=== PATIENT | female | born 1960 | race Caucasian/White ===

== ENCOUNTER → 2016-07-18 | Outpatient (CLI) | payer BC ==
--- NOTE | 2016-07-18 17:57 | MR ---
EXAMINATION TYPE: MR knee RT wo con DATE OF EXAM: 07/18/2016 5:21 PM COMPARISON: Plain film 04 July 2016 HISTORY: knee pain x3 months TECHNIQUE: Multiplanar, multisequence imaging of the knee is performed without IV contrast. FINDINGS: MEDIAL MENISCUS: Posterior horn of the medial meniscus shows irregular stellate signal compatible wit h complex tear, anterior horn is intact LATERAL MENISCUS: Anterior and posterior horns are intact without tear. CRUCIATE LIGAMENTS: The anterior and posterior cruciate ligaments are intact and unremarkable. COLLATERAL LIGAMENTS: The medial collateral ligament and lateral collateral ligament complex are inta ct and unremarkable. EXTENSOR MECHANISM: Visualized quadriceps and patellar tendons are intact. EFFUSION: There is a sizable joint effusion in suprapatellar region and extending laterally POPLITEAL CYST: Semimembranosus gastrocnemius cyst measuring approximately 3.7 cm x 1.5 x 1.2 cm is noted. TRICOMPARTMENT SPACES: Joint space loss is present especially at the patellofemoral joint, there is t ricompartmental marginal spurring. CARTILAGE: Grade IV chondromalacia present at the posterior patella. There is also grade IV chondroma lacia at the lateral condyle of the right femur anteriorly, grade 2 to III chondromalacia in the medi al femoral condyle BONE MARROW SIGNAL: Subchondral geode formation present at the posterior patella, lateral femoral con dyle. OTHER: No additional significant abnormality is appreciated. IMPRESSION: Osteoarthritis, complex tear of the posterior horn of the medial meniscus.
== END | disposition home or self-care (01) ==
LOC: RADMRIMAIN 16:39
PROVIDERS: ATTEND Orthopaedic Surgery
DX: S83.231A Complex tear of medial meniscus, current injury, right knee, initial encounter (principal); M17.11 Unilateral primary osteoarthritis, right knee

== ENCOUNTER → 2016-08-18 | Outpatient (CLI) | payer BC ==
[2016-08-18 14:12] LABS: EKG EKG PERFORMED
[2016-08-18 14:37] LABS: Basophils # (A) 0.1 k/uL (0-0.2); Basophils % (A) 1 %; CH 32.1; Eosinophils # (A) 0.1 k/uL (0-0.7); Eosinophils % (A) 2 %; HCT 39.1 % (34.0-46.0); HDW 2.15; Luc # (Auto) 0.14; Luc % (Auto) 2; Lymphocytes # (A) 1.7 k/uL (1.0-4.8); Lymphocytes % (A) 21 %; MCH 32.4 pg (25.0-35.0); MCHC 33.2 g/dL (31.0-37.0); MCV 97.7 fL (80.0-100.0); Mean Platelet Volume 7.1; Monocytes # (A) 0.4 k/uL (0-1.0); Monocytes % (A) 5 %; Neutrophils # (A) 5.4 k/uL (1.3-7.7); Neutrophils % (A) 70 %; RBC 4.01 m/uL (3.80-5.40); RDW 12.8 % (11.5-15.5); WBC 7.8 k/uL (3.8-10.6); WBC (Perox) 8.11
[2016-08-18 14:45] LABS: Anion Gap 8 mmol/L; Carbon Dioxide 26 mmol/L (22-30); Chloride 108 mmol/L (98-107); Potassium 4.3 mmol/L (3.5-5.1); Sodium 142 mmol/L (137-145)
== END | disposition home or self-care (01) ==
LOC: LABPAT 14:04
PROVIDERS: ATTEND Orthopaedic Surgery
DX: Z01.810 Encounter for preprocedural cardiovascular examination (principal); Z01.818 Encounter for other preprocedural examination; I10 Essential (primary) hypertension; M23.91 Unspecified internal derangement of right knee
CPT/HCPCS: 80051; 85025; 93005

== ENCOUNTER 2016-08-24 07:56 | Day surgery (SDC) | payer BC ==
[2016-08-21 16:04] VITALS: BMI 29.0
--- NOTE | 2016-08-23 17:51 | HP ---
DATE OF ADMISSION: 08/24/2016 Subha Her is a 56-year-old patient seen with progressive right knee pain. After treatment options were discussed, patient to proceed with right knee arthroscopy. Consent was obtained. Past medical history is hypertension, gastroesophageal reflux disease. Past surgical history is tubal ligation, section. DAILY MEDICATIONS: Buspirone, ibuprofen, lisinopril, omeprazole, Xanax. ALLERGIES: DEMEROL, MORPHINE. SOCIAL HISTORY: Patient denies tobacco use. PHYSICAL EVALUATION OF RIGHT KNEE: Range of motion is 0 to 120 degrees. There is mild to moderate effusion. Tenderness along the medial and lateral joint lines. Positive medial Anedr's. Positive lateral Ander's. Ligaments are stable. Hip rotation is without pain. Distal neurovascular exam is intact. Right knee radiographs revealed mild to moderate osteoarthritis. An MRI of the right knee revealed medial meniscal tear, joint effusion and osteoarthritis. IMPRESSION: Internal derangement of right knee with medial meniscal tear. PLAN: Right knee arthroscopy with partial meniscectomy and debridement.
[~2016-08-24 07:56] MED LIST: DEXAMETHASONE SOD PHOSPHATE 10 MG/ML 1 ML VIAL IV ONE; LACTATED RINGERS 1,000 ML IV SCH; MIDAZOLAM 2 MG/2 ML VIAL IV PRN; ONDANSETRON 4 MG/2 ML VIAL IVP ONE; ceFAZolin 2 GM in SODIUM CHLORIDE 0.9% 100 ML IVPB ONE
[2016-08-24 08:10] VITALS: RESP 16; TEMP 98.2
[2016-08-24] MEDS ORDERED: LIDOCAINE 1% 20 ML VIAL (10MG/ML) FOR IV START INTRADERMA ONE (08:43)
[2016-08-24] MEDS ORDERED: fentaNYL (PF) 50 MCG/ML 2 ML AMP ONE (10:02)
[2016-08-24] MEDS ORDERED: PROPOFOL 10 MG/ML 20 ML VIAL IV ONE (10:02)
[2016-08-24] MEDS ORDERED: PHENYLEPHRINE-0.9% NACL SYG 1 MG/10 ML SYRINGE ONE (10:02)
[2016-08-24] MEDS ORDERED: SUCCINYLCHOLINE CHLORIDE 100 MG/5 ML SYR IV ONE (10:02)
[2016-08-24] MEDS ORDERED: LIDOCAINE 1% INJ 10MG/ML (20 ML MDV) ONE (10:02)
[2016-08-24] MEDS ORDERED: MIDAZOLAM 2 MG/2 ML VIAL ONE (10:02)
[2016-08-24] MEDS ORDERED: BUPIVACAIN-EPI 0.25%-1:200,000 30 ML VIAL INTRAARTIC ONE (10:24)
--- NOTE | 2016-08-24 11:04 | P.OP ---
Date of Procedure: 08/24/16 Preoperative Diagnosis: Internal derangement right knee Postoperative Diagnosis: 1. Tear medial and lateral meniscus right knee 2. Grade 2 chondromalacia medial femoral condyle right knee 3. Grade 3/4 chondromalacia patellofemoral joint right knee 4. Reactive synovitis medial and suprapatellar compartments right knee Procedure(s) Performed: 1. Arthroscopic partial medial and lateral meniscectomy right knee 2. Arthroscopic chondroplasty medial femoral condyle right knee 3. Arthroscopic chondroplasty patellofemoral joint right knee 4. Arthroscopic partial synovectomy medial and suprapatellar compartments right knee Implants: Anesthesia: FRANCAA, local Surgeon: Yoni Haynes Estimated Blood Loss (ml): 15 Pathology: none sent Disposition: PACU Indications for Procedure: 56-year-old patient seen with progressive right knee pain. After having treatment options discussed, she elected to proceed with right knee arthroscopy. Operative Findings: See description of procedure Description of Procedure: Patient was taken to the operative suite. Patient underwent a general anesthetic by the department of anesthesia. Patient was given preoperative antibiotics. The right lower extremity was placed in a well-padded arthroscopic leg crowley. The right leg was prepped and draped in the normal sterile orthopedic fashion. A lateral parapatellar and suprapatellar incision was made. Trochars were inserted. Arthroscopy was initiated. Suprapatellar pouch revealed thick reactive synovitis. The patellofemoral joint appeared to articulate congruently. There was grade 3/4 chondromalacia of the patella and femoral sulcus with osteochondral tears present. The scope was guided into the medial gutter. No loose bodies or plica were identified. The scope was then guided into the medial compartment. A medial parapatellar incision was made. Trocar inserted followed by probe. There was a complex tear posterior horn medial meniscus extending just into the midbody area. There was an area of grade 2 chondromalacia medial femoral condyle with some osteochondral tears present. Thick reactive synovitis anteriorly. No loose bodies. A partial medial meniscectomy was performed on a stable tissue. I performed a chondroplasty of the medial femoral condyle and partial synovectomy. The residual meniscus was probed and found to be stable as was the residual osteochondral surface medial femoral condyle. Scope and probe were then guided into the intercondylar notch. Cruciates were identified, probed and found to be stable. The scope and probe were then guided into lateral compartment. There was some superficial tearing of the lateral meniscus in the midbody and posterior horn areas. Mild grade 1 chondromalacia changes with no osteochondral tears. No loose bodies, no reactive synovitis. A partial lateral meniscectomy was performed down to stable tissue. The residual meniscus was probed and found to be stable. The scope was in guided back into the suprapatellar compartment. I introduced a motorized shaver into the super patellar compartment. I performed a chondroplasty of the patella and femoral sulcus getting down to stable osteochondral tissue. I performed a partial synovectomy. The residual osteochondral surfaces were probed and found to be stable. I took one more look around the entire knee, no residual debris. Instruments were now removed from the joint. The joint was infiltrated with .25 % Marcaine. Steri-Strips were applied to the portal sites. Sterile dressings were applied. The patient was placed into a IRAJ hose. No tourniquet was utilized. The patient was awakened, transferred to a bed and taken to recovery stable satisfactory condition.
[2016-08-24] MEDS: HYDROmorphone 1 MG/ML 1 ML SYRINGE IVP PRN ×2 (11:21→11:36)
[2016-08-24] MEDS ORDERED: LACTATED RINGERS 1,000 ML IV ONE (11:37)
[2016-08-24] MEDS ORDERED: HYDROcodone/APAP 5-325MG 1 EACH TAB PO ONE (12:45)
[2016-08-24 13:00] VITALS: BP 131/71; PULSE 62
== END 2016-08-24 13:43 | disposition home or self-care (01) ==
LOC: OR 07:56
PROVIDERS: ATTEND Orthopaedic Surgery
DX: S83.231A Complex tear of medial meniscus, current injury, right knee, initial encounter (principal); S83.281A Other tear of lateral meniscus, current injury, right knee, initial encounter; X58.XXXA Exposure to other specified factors, initial encounter; M23.91 Unspecified internal derangement of right knee; M94.261 Chondromalacia, right knee; M22.41 Chondromalacia patellae, right knee; M65.861 Other synovitis and tenosynovitis, right lower leg; M17.11 Unilateral primary osteoarthritis, right knee; M25.461 Effusion, right knee; I10 Essential (primary) hypertension; K21.9 Gastro-esophageal reflux disease without esophagitis; E78.5 Hyperlipidemia, unspecified; Z79.1 Long term (current) use of non-steroidal anti-inflammatories (NSAID); Z79.899 Other long term (current) drug therapy; Z88.5 Allergy status to narcotic agent; Z88.8 Allergy status to other drugs, medicaments and biological substances; Z72.0 Tobacco use
CPT/HCPCS: 29880; J2250; J1100; J0690; J2405; J2001; J3010; J1170; J2370; J0330; J2704

== ENCOUNTER → 2018-11-01 | Outpatient (CLI) | payer BC ==
--- NOTE | 2018-11-06 11:50 | MM ---
Reason for exam: history of breast cancer, conservation therapy. Last mammogram was performed 3 years and 10 months ago. History: Patient is postmenopausal and has history of breast cancer at age 54. Malignant MG pre op needle loc RT of the right breast, March 26, 2015. Malignant MG stereo VAD BX RT of the right breast, February 12, 2015. Taking antineoplastic for 4 years. Physical Findings: Nurse did not find any significant physical abnormalities on exam. (nurse ts). MG 3D Diag Mammo W/Cad MIROSLAVA Bilateral CC and MLO view(s) were taken. Prior study comparison: January 13, 2015, right breast MG work up mamm w CAD RT. December 31, 2014, bilateral MG screening mammo w CAD. The breast tissue is heterogeneously dense. This may lower the sensitivity of mammography. No suspicious abnormality. Post therapy changes on the right breast. ASSESSMENT: Benign, BI-RAD 2 RECOMMENDATION: Follow-up diagnostic mammogram of both breasts in 1 year. Patient was given the results on 11/05/18.
== END | disposition home or self-care (01) ==
LOC: RADMAMWWP 15:30
PROVIDERS: ATTEND Family Medicine
DX: Z08 Encounter for follow-up examination after completed treatment for malignant neoplasm (principal); Z85.3 Personal history of malignant neoplasm of breast
CPT/HCPCS: 77062; 77066

== ENCOUNTER 2019-12-21 11:07 | Emergency (ER) | payer BC ==
[2019-12-21 11:21] VITALS: BP 150/89; PULSE 75; RESP 18; TEMP 98.1
--- NOTE | 2019-12-21 11:27 | ED ---
General Adult HPI - General Chief complaint: Extremity Injury, Lower Stated complaint: fall, rt foot injury Time Seen by Provider: 12/21/19 11:15 Source: patient, RN notes reviewed, old records reviewed Mode of arrival: ambulatory Limitations: no limitations - History of Present Illness Initial comments: This is a 59-year-old female who presents to the emergency department stating that 4 days ago she was the last DOCTOR first toe on her right foot. Patient states since then it's become swollen and very tender difficult to walk. Patient states she's been away from home so she didn't come to the emergency department. Patient denies falling and hitting her head or neck. Patient denies any other injury at this time. - Related Data Home Medications Medication Instructions Recorded Confirmed Omeprazole [PriLOSEC] 20 mg PO DAILY PRN 12/30/14 08/21/16 buPROPion HCL [Wellbutrin XL] 150 mg PO BID 12/30/14 08/21/16 lisinopriL 40 mg PO HS 12/30/14 08/21/16 Acetaminophen Tab [Tylenol Tab] 500 mg PO Q6H PRN 03/26/15 08/21/16 Anastrozole [Arimidex] 1 mg PO DAILY 08/21/16 08/21/16 Ibuprofen [Motrin] 800 mg PO BID 08/21/16 08/21/16 Previous Rx's Medication Instructions Recorded Hydrocodone/Acetaminophen [[place] 1 - 2 each PO Q6HR PRN #30 tab 08/24/16 5-325] Allergies Allergy/AdvReac Type Severity Reaction Status Date / Time celecoxib [From Celebrex] Allergy "IT MADE Verified 12/21/19 11:17 MY ARTHRITIS WORSE" morphine Allergy "I didn't Verified 12/21/19 11:17 like how it made me feel" meperidine HCl [From Demerol] AdvReac "I didn't Verified 12/21/19 11:17 like how it made me feel" Review of Systems ROS Statement: Those systems with pertinent positive or pertinent negative responses have been documented in the HPI. ROS Other: All systems not noted in ROS Statement are negative. Past Medical History Past Medical History: GERD/Reflux, Hypertension History of Any Multi-Drug Resistant Organisms: None Reported Past Surgical History: Section, Orthopedic Surgery, Tubal Ligation Additional Past Surgical History / Comment(s): X2, PILINOIDAL CYST REMOVED, RT HAMMER TOE REPAIR, LEFT INDEX FINGER TIP AMPUTATED R/T DOG BITE Past Anesthesia/Blood Transfusion Reactions: No Reported Reaction Past Psychological History: Anxiety, Depression Smoking Status: Current every day smoker Past Alcohol Use History: None Reported Past Drug Use History: None Reported - Past Family History Mother Family Medical History: Congestive Heart Failure (CHF), Myocardial Infarction (CA) Father Additional Family Medical History / Comment(s): SUICIDE General Exam - General Exam Comments Initial Comments: GENERAL Patient is well-developed and well-nourished. Patient is in mild distress. EYES Patient's pupils are equal and round. Extraocular motion is intact SKIN Unremarkable NEURO The patient is alert and oriented 3 PYSCH Patient has normal interpersonal interactions. MUSCULOSKELETAL Patient's right first toe is swollen and very tender to first metatarsal is also slightly tender at the distal aspect. Limitations: no limitations Course Vital Signs 12/21/19 11:18 Temperature 98.1 F Pulse Rate 75 Respiratory 18 Rate Blood Pressure 150/89 O2 Sat by Pulse 99 Oximetry Medical Decision Making - Medical Decision Making X-ray of the foot shows no acute abnormality. I explained to the patient she could've ligamentous damage and needed to follow up with orthopedics and she agreed. Disposition Clinical Impression: Right foot strain Disposition: HOME SELF-CARE Condition: Good Instructions (If sedation given, give patient instructions): Foot Sprain (ED) Is patient prescribed a controlled substance at d/c from ED?: No Referrals: Tyrell Cartwright DO [Medical Doctor] - 1-2 days Time of Disposition: 12:13
--- NOTE | 2019-12-21 11:49 | XR ---
EXAMINATION TYPE: XR foot complete RT DATE OF EXAM: 12/21/2019 COMPARISON: NONE HISTORY: Pain TECHNIQUE: Three views are submitted. FINDINGS: The osseous structures are intact. There is no acute fracture or dislocation. Arthropathy of the f irst MTP. Arthropathy of the PIP joint second digit. Chronic deformity along the distal margin of the proximal phalanx second digit. Large calcaneal spurs are noted.. IMPRESSION: 1. No acute fracture or dislocation. If symptoms persist, follow-up exam in 7 to 10 days could be ob tained. Deformity involving the proximal phalanx second digit appears chronic. 2. Arthropathy with large calcaneal spurs.
== END 2019-12-21 12:25 | disposition home or self-care (01) ==
LOC: EC 11:07
DX: S96.911A Strain of unspecified muscle and tendon at ankle and foot level, right foot, initial encounter (principal); I10 Essential (primary) hypertension; F32.9 Major depressive disorder, single episode, unspecified; K21.9 Gastro-esophageal reflux disease without esophagitis; F41.9 Anxiety disorder, unspecified; F17.200 Nicotine dependence, unspecified, uncomplicated; Z79.899 Other long term (current) drug therapy; Z79.1 Long term (current) use of non-steroidal anti-inflammatories (NSAID); Z88.6 Allergy status to analgesic agent; Z88.5 Allergy status to narcotic agent; X58.XXXA Exposure to other specified factors, initial encounter
CPT/HCPCS: 99284

== ENCOUNTER → 2020-06-30 | Outpatient (CLI) | payer BC | END | disposition home or self-care (01) | LOC: LABWHC1 16:07 | PROVIDERS: ATTEND Nurse Practitioner Family | DX: Z20.822 Contact with and (suspected) exposure to COVID-19 (principal) | CPT/HCPCS: U0003; C9803; U0005 ==

== ENCOUNTER → 2020-08-11 | Outpatient (CLI) | payer BC ==
--- NOTE | 2020-08-12 13:06 | MM ---
Reason for exam: screening (asymptomatic). Last mammogram was performed 1 year and 9 months ago. History: Patient is postmenopausal and has history of breast cancer at age 54. Malignant MG pre op needle loc RT of the right breast, March 26, 2015. Malignant MG stereo VAD BX RT of the right breast, February 12, 2015. Taking antineoplastic for 4 years. Physical Findings: A clinical breast exam by your physician is recommended on an annual basis and results should be correlated with mammographic findings. MG 3D Screening Mammo W/Cad Bilateral CC and MLO view(s) were taken. Prior study comparison: November 01, 2018, bilateral MG 3d diag mammo w/cad MIROSLAVA. January 13, 2015, right breast MG work up mamm w CAD RT. The breast tissue is heterogeneously dense. This may lower the sensitivity of mammography. Finding: Architectural distortion in the lower inner quadrant, middle position of the right breast. There is no discrete abnormality. ASSESSMENT: Benign, BI-RAD 2 RECOMMENDATION: Routine screening mammogram of both breasts in 1 year.
== END | disposition home or self-care (01) ==
LOC: RADMAMWWP 16:00
PROVIDERS: ATTEND Family Medicine
DX: Z12.31 Encounter for screening mammogram for malignant neoplasm of breast (principal); Z78.0 Asymptomatic menopausal state; Z85.3 Personal history of malignant neoplasm of breast
CPT/HCPCS: 77063; 77067

== ENCOUNTER → 2022-04-03 | Outpatient (CLI) | payer BC ==
--- NOTE | 2022-04-03 14:16 | US ---
EXAMINATION TYPE: US carotid duplex BILAT DATE OF EXAM: 04/03/2022 COMPARISON: NONE CLINICAL HISTORY: Z13.6 screening. TECHNIQUE: Carotid duplex ultrasound examination. Indirect Doppler criteria was utilized. FINDINGS: EXAM MEASUREMENTS: RIGHT: Peak Systolic Velocity (PSV) cm/sec ----- Right CCA: 122.0 ----- Right ICA: 151.0 ----- Right ECA: 128.0 ICA/CCA ratio: 1.23 RIGHT: End Diastole cm/sec ----- Right CCA: 29.9 ----- Right ICA: 40.2 ----- Right ECA: 17.2 LEFT: Peak Systolic Velocity (PSV) cm/sec ----- Left CCA: 85.1 ----- Left ICA: 141.0 ----- Left ECA: 103.0 ICA/CCA ratio: 1.65 LEFT: End Diastole cm/sec ----- Left CCA: 22.1 ----- Left ICA: 34.4 ----- Left ECA: 13.9 VERTEBRALS (direction of flow): Right Vertebral: Antegrade Left Vertebral: Antegrade Rhythm: Normal PARATRANSIT DRIVER NOTES: No significant stenosis seen. Mildly elevated velocities noted bilateral ICA's. Mi ld bilateral plaque noted. IMPRESSION: 50-69% stenosis of the bilateral carotid bifurcations by peak systolic velocity. Criteria for Assigning % of Stenosis / Diameter reduction (Estimation based on the indirect measurements of the internal carotid artery velocities (ICA PSV). 1. Normal (no stenosis)=ICA PSV < 125 cm/s: ratio < 2.0: ICA EDV<40 cm/s. 2. Less than 50% stenosis=ICA PSV < 125 cm/s: ratio < 2.0: ICA EDV<40 cm/s. 3. 50 to 69% stenosis=ICA PSV of 125 to 230 cm/s: ration 2.0 ? 4.0: ICA EDV 40-100 cm/s. 4. Greater than 70% stenosis to near occlusion= ICA PSV > 230 cm/s: ratio > 4.0: ICA EDV > 100 cm/s. 5. Near occlusion= ICA PSV velocities may be low or undetectable: variable ratio and ICA EDV. 6. Total occlusion=unable to detect flow.
== END | disposition home or self-care (01) ==
LOC: RADUSWWP 13:26
PROVIDERS: ATTEND Family Medicine
DX: Z13.6 Encounter for screening for cardiovascular disorders (principal); I65.23 Occlusion and stenosis of bilateral carotid arteries
CPT/HCPCS: 93880

== ENCOUNTER → 2022-07-11 | Outpatient (CLI) | payer BC ==
--- NOTE | 2022-07-11 19:32 | BD ---
EXAMINATION TYPE: Axial Bone Density DATE OF EXAM: 07/11/2022 CLINICAL HISTORY: 62 years old Female. ICD-10 CODE: Z78.0 asymp,Z13.820 Encounter for screening for osteoporosis Height: 64.5in Weight: 171lb FRAX RISK QUESTIONS: Secondary Osteoporosis: RISK FACTORS HISTORY OF: Family History of Osteoporosis: unknown Active: yes Postmenopausal woman: yes Lost more than 2 inches in height since high school: yes MEDICATIONS: Additional Medications: bp med Additional History: breast cancer 2015 with radiation EXAM MEASUREMENTS: Bone mineral densitometry was performed using the Audience System. Bone mineral density as measured about the Lumbar spine is: ----- L1-L4(G/cm2): 1.506 T Score Values are as follows: ----- L1: 4.2 ----- L2: 2.6 ----- L3: 1.6 ----- L4: 2.7 ----- L1-L4: 2.7 Z Score Values are as follows: ----- L1: 5.0 ----- L2: 3.5 ----- L3: 2.5 ----- L4: 3.6 ----- L1-L4: 3.6 First dexa at [facility] Bone mineral density about the R hip (g/cm2): 0.829 Bone mineral density about the L hip (g/cm2): 0.856 T Score values are as follows: -----R Neck: -1.8 -----L Neck: -1.2 -----R Total: -1.4 -----L Total: -1.2 Z Score values are as follows: -----R Neck: -0.7 -----L Neck: -0.2 -----R Total: -0.7 -----L Total: -0.5 FRAX%s: The graph provided illustrates a 8.9% chance for a major osteoporotic fx and a 1% chance for the hips probability for fx in 10 years time. IMPRESSION: Osteopenia (T Score between -2.5 and -1). There is slightly increased risk of fracture and the patient may be considered for treatment. Re-Screen 2-5 years. NOTE: T-SCORE=SD OF THE YOUNG ADULT MEAN.
--- NOTE | 2022-07-12 09:19 | MM ---
Reason for Exam: Hx of breast augmentation, asymptomatic. Last mammogram was performed 1 year(s) and 11 month(s) ago. Patient History: Menarche at age 12. First Full-Term at age 22. Postmenopausal. Breast cancer, right, age 54. Previous chest radiation therapy at age 54. 03/26/2015, Malignant Core Biopsy on the right side. 02/12/2015, Malignant Core Biopsy on the right side. Maternal cousin had ovarian cancer under age 50. Prior Study Comparison: 12/31/2014 Bilateral Screening Mammogram, [facility]. 01/13/2015 Right Diagnostic Mammogram, [facility]. 11/01/2018 Bilateral Diagnostic Mammogram, [facility]. 08/11/2020 Bilateral Screening Mammogram, [facility]. Tissue Density: There are scattered fibroglandular densities. Findings: Analyzed By CAD. Pattern appears symmetrical and stable. Multiple surgical clips are within the medial right breast. Focal asymmetry is within the bilateral breasts appears stable. No significant interval changes. No suspicious groups of microcalcifications, spiculated or lobular masses, architectural distortion or other secondary signs of malignancy are mammographically apparent. Overall Assessment: Benign, BI-RAD 2 Management: Screening Mammogram of both breasts in 1 year. A negative mammogram report should not preclude additional follow up of suspicious palpable abnormalities. Patient should continue monthly self breast exam. A clinical breast exam by your physician is recommended on an annual basis and results should be correlated with mammographic findings. Electronically signed and approved by: Juve Egan D.O. Radiologis
--- NOTE | 2022-07-12 10:34 | CA ---
Transthoracic Echo Report Name: Subha Her Age: 62 Gender: F : 1960 Exam Date: 07/11/2022 14:05 Exam Location: [place] [facility] Ht (in): 66 Wt (lb): 175 Ordering Physician: Pancho Zepeda MD Attending/Referring Phys: [id number], Duane Front Counter Attendant [place] ANGELA Procedure CPT: Indications: R01.1, Z78.0, Z12.31 Cardiac Hx: HTN Technical Quality: Fair Contrast 1: Total Dose (mL): Contrast 2: Total Dose (mL): MEASUREMENTS (Male / Female) Normal Values 2D ECHO LV Diastolic Diameter PLAX 4.0 cm 4.2 - 5.9 / 3.9 - 5.3 cm LV Systolic Diameter PLAX 2.3 cm LV Fractional Shortening PLAX 43.4 % IVS Diastolic Thickness 0.8 cm 0.6 - 1.0 / 0.6 - 0.9 cm IVS Systolic Thickness 1.2 cm LVPW Diastolic Thickness 0.9 cm 0.6 - 1.0 / 0.6 - 0.9 cm LVPW Systolic Thickness 1.3 cm LV Relative Wall Thickness 0.4 RV Internal Dim ED PLAX 1.9 cm LVOT Diameter 2.0 cm LA Systolic Diameter LX 3.2 cm 3.0 - 4.0 / 2.7 - 3.8 cm LV Diastolic Volume MOD BP 109.3 cm??? 67 - 155 / 56 - 104 cm??? LV Systolic Volume MOD BP 41.6 cm??? 22 - 58 / 19 - 49 cm??? LV Ejection Fraction MOD BP 62.0 % >= 55 % LV Stroke Volume MOD BP 67.7 cm??? LV Diastolic Volume MOD 4C 107.5 cm??? LV Systolic Volume MOD 4C 35.5 cm??? LV Ejection Fraction MOD 4C 66.9 % LV Stroke Volume MOD 4C 71.9 cm??? LV Diastolic Length 4C 8.4 cm LV Systolic Length 4C 6.2 cm LV Diastolic Volume MOD 2C 112.5 cm??? LV Systolic Volume MOD 2C 43.9 cm??? LV Ejection Fraction MOD 2C 61.0 % LV Stroke Volume MOD 2C 68.6 cm??? LV Diastolic Length 2C 8.4 cm LV Systolic Length 2C 7.0 cm Ascending Aorta Diameter 2.3 cm M-MODE Aortic Root Diameter MM 2.6 cm LA Systolic Diameter MM 2.9 cm LA Ao Ratio MM 1.1 MV E Point Septal Separation 1.0 cm AV Cusp Separation MM 1.6 cm DOPPLER AV Peak Velocity 154.0 cm/s AV Peak Gradient 9.5 mmHg MV Peak Velocity 148.7 cm/s MV Peak Gradient 8.8 mmHg MV Mean Velocity 83.6 cm/s MV Mean Gradient 3.2 mmHg MV Velocity Time Integral 45.9 cm MV Deceleration Nance 286.7 cm/s??? MR Peak Velocity 475.9 cm/s MR Peak Gradient 90.6 mmHg Mitral E Point Velocity 98.8 cm/s Mitral A Point Velocity 118.2 cm/s Mitral E to A Ratio 0.8 MV Deceleration Time 344.5 ms MV E' Velocity 7.3 cm/s Mitral E to MV E' Ratio 13.6 TR Peak Velocity 103.4 cm/s TR Peak Gradient 4.3 mmHg Right Ventricular Systolic Press 9.3 mmHg PV Peak Velocity 99.1 cm/s PV Peak Gradient 3.9 mmHg FINDINGS Left Ventricle Left ventricular ejection fraction is estimated at 55-60 %. Grade 1 diastolic dysfunction. Normal basal systolic function. Right Ventricle Normal right ventricular size and function. Right Atrium Normal right atrial size. Left Atrium Mild left atrial dilatation. Mitral Valve Myxomatous (redundant) mitral valve. Mild to moderate mitral regurgitation Aortic Valve Trileaflet aortic valve. Tricuspid Valve Mild tricuspid regurgitation. Pulmonic Valve Trace pulmonic regurgitation. Pericardium Normal pericardium. No pericardial effusion. Aorta Normal size aortic root and proximal ascending aorta. CONCLUSIONS Normal LV size and systolic function with mild concentric LVH. 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 There is mild to moderate mitral regurgitation and mild mitral annular calcification. No pericardial effusion. No pulmonary hypertension Previewed by: Dr. Rm Poole MD (Electronically Signed) Final Date: 12 July 2022 10:33
== END | disposition home or self-care (01) ==
LOC: RADMAMWWP 13:07
PROVIDERS: ATTEND Family Medicine
DX: Z12.31 Encounter for screening mammogram for malignant neoplasm of breast (principal); Z13.820 Encounter for screening for osteoporosis; M85.89 Other specified disorders of bone density and structure, multiple sites; R01.1 Cardiac murmur, unspecified; Z78.0 Asymptomatic menopausal state; Z92.3 Personal history of irradiation
CPT/HCPCS: 77063; 77067; 77080; 93306